=== PATIENT | male | born 1990 | race Caucasian/White ===

== ENCOUNTER 2018-06-18 14:39 | Emergency (ER) | payer SELFPAY ==
[~2018-06-18] VITALS: Ht 185.4 cm; Wt 113.6 kg
[~2018-06-18 14:39] MED LIST: ALBU17AE27 IH
[2018-06-18] MEDS ORDERED: IBUPROFEN 600 MG TABLET PO ONE (15:30)
[2018-06-18 16:09] VITALS: BP 150/89
== END 2018-06-18 16:10 | disposition home or self-care (01) ==
LOC: EMS 14:40
DX: M75.22 Bicipital tendinitis, left shoulder (principal); J45.909 Unspecified asthma, uncomplicated; F12.90 Cannabis use, unspecified, uncomplicated; F17.210 Nicotine dependence, cigarettes, uncomplicated
CPT/HCPCS: 99406